=== PATIENT | female | born 1995 | race African-American/Black ===

== ENCOUNTER 2016-11-05 09:15 | Emergency (ER) ==
[2016-11-05 09:27] VITALS: BP 123/75
--- NOTE | 2016-11-05 09:50 | PROVIDER DOCUMENTATION ---
HPI-Respiratory General - General Chief Complaint: Wheezing Stated Complaint: ASTHMA SX/SOB Time Seen by Provider: 11/05/16 09:30 Source: patient Unable to obtain history due to:: urgency Allergies/Adverse Reactions: Patient Allergies Allergy/AdvReac Type Severity Reaction Status Date / Time No Known Allergies Allergy Verified 09/02/16 19:57 Home Medications: Home Medication List Medication Instructions Recorded Confirmed Last Taken Type Albuterol Sulfate [Albuterol 18 gm IH Q6H PRN #1 hfa.aer.ad 09/02/16 Unknown Rx Sulfate Hfa] Azithromycin [Zithromax Z-Nathaniel] 250 mg PO DIRECTED #1 pkg 09/24/16 Unknown Rx Montelukast [Singulair] 10 mg PO DAILY #30 tablet 09/24/16 Unknown Rx Prednisone 5 mg PO DIRECTED #1 tab.ds.pk 09/24/16 Unknown Rx Albuterol Sulfate [Albuterol 8.5 gm IH 4XDAY PRN PRN #1 11/05/16 Unknown Rx Sulfate Hfa] hfa.aer.ad Albuterol [Albuterol Neb] 2.5 mg INH Q4H PRN PRN #60 neb 11/05/16 Unknown Rx Budesonide 0.5 mg IH BID #60 ampul.neb 11/05/16 Unknown Rx Prednisone 10 mg PO BID #20 tablet 11/05/16 Unknown Rx - History of Present Illness-Resp Nature of Presenting Problem: pt is a 20 y/o f present to the ER with c/o asthma flare ups. pt states she has been SOB, more than usual, when she has flare ups its not this bad. Pt states she uses her asthma meds 3x a day. pt denies cough, runny nose, nasal congestion , fever, nausea, vomiting or diarrhea. Pt has hx of eczema. Quality of Pain: reports: none Severity in ED: reports: mild, moderate Onset/Duration: reports: 3 days ago Timing: reports: still present Current Respiratory Medication Therapy: Initiated albuterol, Not Used measures home peak flows, Not Used prednisone Modifying Factors: improves with: albuterol inhaler Associated Symptoms: denies: cough, dizziness, earache Similar Symptoms Previously?: Yes Recently seen or treated by another doctor?: No Review of Systems - Adult - REVIEW OF SYSTEMS - ADULT Constitutional: denies: chills, fever, fatique Eyes: reports: no symptoms reported Ears, Nose, Mouth & Throat: reports: no symptoms reported. denies: see HPI, ear pain, hearing loss Cardiovascular: reports: no symptoms reported. denies: chest pain, edema, heart murmur Respiratory: reports: shortness of breath, wheezing. denies: chronic cough, cough Gastrointestinal: reports: no symptoms reported Genitourinary: reports: no symptoms reported Musculoskeletal: reports: no symptoms reported Integumentary: reports: no symptoms reported Neurological: reports: no symptoms reported Psychiatric: reports: no symptoms reported Endocrine: reports: no symptoms reported Hematologic/Lymphatic: reports: no symptoms reported Allergic/Immunologic: reports: no symptoms reported All Other Systems: Reviewed and Negative Past History - Adult - PAST MEDICAL HISTORY-ADULT Review of Records: reports: Old Records Reviewed, Nursing Assessment Review Major Childhood Illnesses: reports: denies history Cardiovascular: reports: denies history Respiratory: reports: asthma Gastrointestinal: reports: denies history Obstetrical/Gynecological: reports: denies history Genitourinary: reports: denies history Musculoskeletal: reports: denies history Neurological: reports: denies history Endocrine/Immune: reports: denies history Other Conditions: reports: denies history - PRIOR SURGERIES/PROCEDURES Surgical/Procedure History: reports: other (lumpectomy) - PRIOR HOSPITALIZATIONS Prior Hospitalizations: reports: none - IMMUNIZATION STATUS Childhood Immunizations: See Nurse Assessment Flu Vaccine: See Nurse Assessment - FAMILY HISTORY Family History: reviewed, not pertinent - SOCIAL HISTORY Smoking: denies Substance Use: none/never Alcohol Use Frequency: never Physical Exam-General - PHYSICAL EXAM-ADULT Initial Vital Signs Reviewed: Yes - CONSTITUTIONAL General Appearance: appears well, alert, no apparent distress - EYES Eyes: PERRL/EOMI, pink conjunctivae - HEAD, EARS, NOSE, MOUTH & THROAT HENMT: moist mucous membranes, normal ENT inspection - NECK Neck: non-tender, full range of motion - RESPIRATORY Respiratory: chest non-tender, wheezing (Inspiratory and expiratory). negative : plerual rub, retractions - CARDIOVASCULAR Cardiovascular: normal peripheral pulses, regular rate, rhythm - GASTROINTESTINAL (ABDOMEN) Abdominal Exam: non tender, soft - MUSCULOSKELETAL Back Exam: normal inspection Extremity: normal range of motion, non-tender - SKIN Integumentary: normal color, normal turgor, warm/dry, other (eczema in bilateral arm folds) - NEUROLOGIC Neurologic: grossly normal, no motor/sensory deficits - PSYCHIATRIC Psych/Mental Status: normal mood/affect, normal thought content, normal thought process, oriented x 3 Progress - PLAN OF CARE/RESULTS Progress/Plan/Lab Results: Vital Signs - 24 hr 11/05/16 09:25 Temperature 97.8 F Pulse Rate 75 Respiratory 20 Rate Blood Pressure 123/75 O2 Sat by Pulse 99 Oximetry Departure - Departure Time of Disposition Order: 10:23 DIAGNOSIS: Asthma Qualifiers: Asthma severity: unspecified severity Asthma complication type: with acute exacerbation Qualified Code(s): J45.901 - Unspecified asthma with (acute) exacerbation Disposition: HOME 01 Certified Medical Emergency: Emergent Condition: Fair Additional Instructions: ED Follow Up Instructions: You have been treated by a care provider in the Emergency Department. These instructions are being provided to you so you can have an understanding of how to care for yourself upon discharge. Upon discharge from the Emergency Department, you are responsible for making arrangements for follow-up care by a physician of your choice. Take all prescribed medications as directed. Return to the Emergency Department immediately for any new or worsening symptoms. You may call the Physician Referral phone number at [phone] to obtain a list of Physicians who are taking new patients. Prescriptions: Albuterol [Albuterol Neb] 2.5 mg INH Q4H PRN PRN #60 neb PRN Reason: wheezes Albuterol Sulfate [Albuterol Sulfate Hfa] 8.5 gm IH 4XDAY PRN PRN #1 hfa.aer.ad PRN Reason: wheezes Budesonide 0.5 mg IH BID #60 ampul.neb Prednisone 10 mg PO BID #20 tablet Referrals: None,PCP [Primary Care Provider] - Hue Blair MD [STAFF PHYSICIAN] - Forms: Return to School/Parent Work Instructions: Asthma, Adult, [id number], Prednisone tablets Attestation - Scribe Verification/Attestation Scribe:: Nicol Garnett Acting as Scribe for:: Khari Rios Scribe documention review:: This chart was documented by a scribe and accurately reflects the service the provider performed and the decisions made by the provider.
== END 2016-11-05 10:10 | disposition home or self-care (01) ==
LOC: P.ED 09:15
DX: J45.901 Unspecified asthma with (acute) exacerbation (principal); R06.2 Wheezing; R06.02 Shortness of breath